=== PATIENT | male | born 1935 | race Caucasian/White ===

== ENCOUNTER 2016-10-27 19:19 | Emergency (ER) | payer OTHER ==
--- NOTE | 2016-10-27 19:26 | PDOC ---
History of Present Illness - General History Source: Patient, Family, Spouse Exam Limitations: No Limitations - History of Present Illness Initial Comments: 10/27/16 19:56 The patient is a 81 year old male, with a significant past medical history of melanoma (in the back), A Fib, ASHD, BPH, hypertension, and hyperlipidemia, who presents to the emergency department complaining of facial weakness for the past 4-5 days. The patient reports he recently began chemotherapy for melanoma of the lymph node, three weeks ago. During his last chemo session 6 days ago patient was feeling fine. However, he began to develop facial weakness that has become more pronounced during the past couple of days. As per , patient now has a droopy left eyelid. Patient denies any head trauma or LOC. As per son, these symptoms were reported to the patients PCP and Oncologist, and the oncologist suggested the patient come to the ED for a head CT. The patient denies any associated changes in vision, numbness, tingling, or facial pain. He denies any chest pain, shortness of breath, diaphoresis, or palpitations. He denies any fever, chills, cough, headache, or dizziness. He denies any recent travel or sick contacts. The patient is on coumadin. PAST MEDICAL HISTORY: melanoma (in the back), A Fib, ASHD, BPH, hypertension, and hyperlipidemia. PAST SURGICAL HISTORY: Back melanoma removal (2 years ago), which has now spread to the lymph nodes. FAMILY HISTORY: no pertinent history SOCIAL HISTORY: Pt lives at home with family. Non smoker. No ETOH or drug use. MEDICATIONS: reviewed ALLERGIES: As per nursing notes General: No fevers or chills, no weight loss HEENT: Yes: +facial weakness, +Right eye droop. No change in vision. No sore throat,. No ear pain CardioVascular: No chest pain or shortness of breath Respiratory:No cough, or wheezing. Gastrointestinal: no nausea, vomiting, diarrhea or constipation, No rectal bleeding Genitourinary: No dysuria, hematuria, or frequency Musculoskeletal: No joint or muscle pain or swelling Neurologic: Yes: +facial weakness. No headache, vertigo, dizziness or loss of consciousness Psychiatric: No depression Skin: No rashes or easy bruising Endocrine: no increased thirst or abnormal weight change Allergic: no skin or latex allergy All other systems reviewed and normal GENERAL: The patient is awake, alert, and fully oriented, in no acute distress. HEAD: Left sided facial droop, which is most pronounced in the area of the left eyelid. Very Mild weakness of the muscles of the forehead and lower face. Otherwise normal with no signs of trauma. EYES: There is moderate weakness of the muscles of the left eyelid. Pupils equal , round and reactive to light, extraocular movements intact, sclera anicteric, conjunctiva clear. EXTREMITIES: Normal range of motion, no edema. NEUROLOGICAL: Motor strength 5/5 and equal bilaterally at all 4 extremities. Normal speech, normal gait. PSYCH: Normal mood, normal affect. SKIN: Warm, Dry, normal turgor, no rashes or lesions noted. <Jayla Madsen - Last Filed: 10/27/16 19:57> - General History Source: Patient Exam Limitations: No Limitations - History of Present Illness Initial Comments: 10/27/16 20:50 A portion of this note was documented by scribe services under my direction. I have reviewed the details of the note, within reason, and agree with the documentation. The case summary and management plan written by me. CAT scan showed no acute pathology Assessment and plan: This is an 81-year-old male comes in with a mild left facial droop and was sent in by his oncologist for a CAT scan of his head. Patient had a CAT scan of the head to rule out lesions. The CAT scan was negative for any acute pathology including any mass as patient has a history of stage III melanoma. 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 Patient was told to follow- up with his oncologist on Saturday and given the fact that his symptoms are very mild at this time I did not start him on any steroids or antivirals and will leave that up to his oncologist as I do not want to affect his chemotherapy regimen. <Maryse Chirinos I - Last Filed: 10/27/16 20:54> - General Chief Complaint: Eye Problem Stated Complaint: LEFT EYELID SWELLING Time Seen by Provider: 10/27/16 19:23 Past History <Jayla Madsen - Last Filed: 10/27/16 19:57> - Past Medical History Anemia: No Asthma: No Cancer: Yes (Melanoma Back) Cardiac Disorders: Yes (ATRIAL FIB,ASHD) CVA: No COPD: No CHF: No Dementia: No Diabetes: No GI Disorders: No Disorders: Yes (BPH) HTN: Yes Hypercholesterolemia: Yes Liver Disease: No Seizures: No Thyroid Disease: No - Surgical History Abdominal Surgery: No Appendectomy: No Cardiac Surgery: No Cholecystectomy: No Lung Surgery: No Neurologic Surgery: No Orthopedic Surgery: No - Psycho/Social/Smoking Cessation Hx Suicidal Ideation: No Smoking History: Never smoked Have you smoked in the past 12 months: No Hx Alcohol Use: No Drug/Substance Use Hx: No Substance Use Type: None Hx Substance Use Treatment: No <Maryse Chirinos I - Last Filed: 10/27/16 20:54> - Past Medical History Allergies/Adverse Reactions: Allergies Allergy/AdvReac Type Severity Reaction Status Date / Time No Known Allergies Allergy Verified 10/10/13 17:17 Home Medications: Ambulatory Orders Allopurinol [Zyloprim -] 300 mg PO DAILY 10/10/13 Benazepril HCl 10 mg PO DAILY 10/10/13 Finasteride 5 mg PO DAILY 10/10/13 Gemfibrozil 600 mg PO BID 10/10/13 Hydrochlorothiazide [Hctz -] 25 mg PO DAILY 10/10/13 Metoprolol Succinate [Toprol XL -] 100 mg PO DAILY 10/10/13 Simvastatin [Zocor -] 20 mg PO HS 10/10/13 Warfarin Na [Coumadin] 5 mg PO DAILY@1800 #14 tablet 10/13/13 *Physical Exam - Vital Signs Last Vital Signs Temp Pulse Resp BP Pulse Ox 97.7 F 74 15 140/77 97 10/27/16 19:20 10/27/16 19:20 10/27/16 19:20 10/27/16 19:20 10/27/16 19:20 <Jayla Madsen - Last Filed: 10/27/16 19:57> *DC/Admit/Observation/Transfer - Attestations Scribe Attestion: 10/27/16 19:56 Documentation prepared by Jayla Madsen, acting as medical pathologist for Maryse Chirinos MD. <Jayla Madsen - Last Filed: 10/27/16 19:57> - Discharge Dispostion Admit: No <Maryse Chirinos I - Last Filed: 10/27/16 20:54> Diagnosis at time of Disposition: Herrera's palsy - Discharge Dispostion Disposition: HOME Condition at time of disposition: Good - Referrals Referrals: Cheikh Mahajan MD [Primary Care Provider] - - Patient Instructions Additional Instructions: Take the copy of your CAT scan that you're given to your oncologist on Saturday Make sure you follow-up with your oncologist on Saturday. Return to the emergency department immediately with ANY new, persistent or worsening symptoms. Continue any medications as previously prescribed by your physician. You should follow up with your primary doctor as soon as possible regarding today's emergency department visit. . Please make sure your doctor reviews the results of your emergency evaluation. Thank you for coming to the Emergency Department today for your care. It was a pleasure to see you today. Please note that your evaluation is INCOMPLETE until you follow-up with your doctor.
[2016-10-27 19:46] VITALS: BP 140/77; PULSE 74; TEMP 97.7; BMI 29.6
== END 2016-10-27 21:02 | disposition home or self-care (01) ==
LOC: FER 19:19
DX: G51.0 Bell's palsy (principal); C43.59 Malignant melanoma of other part of trunk; I48.91 Unspecified atrial fibrillation; I10 Essential (primary) hypertension; E78.00 Pure hypercholesterolemia, unspecified; N40.0 Benign prostatic hyperplasia without lower urinary tract symptoms; I25.10 Atherosclerotic heart disease of native coronary artery without angina pectoris
CPT/HCPCS: 70450-TC; 99282-25